=== PATIENT | female | born 1965 | race Caucasian/White ===

== ENCOUNTER 2017-05-15 17:58 | Emergency (ER) | payer OTHER ==
[2017-05-15] MEDS ORDERED: Sodium Chloride 0.9% 1,000 ML IV ONE (18:25)
[2017-05-15] MEDS ORDERED: HYDROmorphone 1 mg/mL 1mL Syr IVP STA (18:25)
[2017-05-15] MEDS ORDERED: HYDROmorphone 1 mg/mL 1mL Syr ONE (18:29)
--- NOTE | 2017-05-15 18:32 | ED Physician Chart ---
Chief Complaint/HPI - Patient Information Date Seen:: 05/15/17 Time Seen:: 18:15 Chief Complaint:: abdominal pain involving History of Present Illness:: Patient developed epigastric pain 3 days ago. She has been nauseated and has vomited 3 times in the morning and has slight diarrhea. She mentioned she's had a lot of retching. Allergies:: Allergies Allergy/AdvReac Type Severity Reaction Status Date / Time No Known Allergies Allergy Verified 04/04/16 22:04 Vitals:: Vital Signs - 8 hr 05/15/17 18:06 Temp 97.7 F HR 92 RR 16 BP 144/90 O2 Sat % 100 Historian:: Patient Review:: Nurse's Note Reviewed Review of Systems - Review of Systems General/Constitutional: No fever, No chills Skin: No skin lesions Head: No headache Eyes: Acuity change ENT: No earache Neck: No neck pain Cardio Vascular: No chest pain, No palpitations Pulmonary: No SOB, No cough GI: Nausea, Vomiting, Diarrhea, Pain G/U: No dysuria, No hematuria Musculoskeletal: No bone or joint pain, No back pain Endocrine: No polyuria, No polydipsia Psychiatric: No prior psych history Hematopoietic: No bruising Allergic/Immuno: No urticaria Neurological: No syncope, No focal symptoms Past Medical History - Past Medical History Past Medical History: Asthma/COPD Family History: HTN, Cancer Social History: Smoker, Alcohol, Other (smokes 1 cigarette a day; drinks a slight amount of alcohol on the weekends) Surgical History: None Psychiatricy History: None Medication: None Family Medical History - Family Member Mother History Unknown: Yes Hx Family Cancer: Yes Hx Family Hypertension: Yes Labs/Radiology/EKG Results - Lab Results Results: Laboratory Results - last 24 hr 05/15/17 05/15/17 05/15/17 18:30 18:30 18:30 WBC 12.9 H D RBC 4.62 Hgb 13.9 Hct 42.0 MCV 90.8 MCH 30.1 MCHC Differential 33.2 RDW 12.0 Plt Count 309 MPV 7.7 Neutrophils % 67.6 Lymphocytes % 23.0 Monocytes % 6.1 Eosinophils % 1.3 Basophils % 2.0 Sodium 134 L Potassium 3.8 Chloride 104 Carbon Dioxide 26.0 Anion Gap 7.8 BUN 14 Creatinine 0.7 Est GFR ( Amer) > 60.0 Est GFR (Non-Af Amer) > 60.0 BUN/Creatinine Ratio 20.0 Glucose 95 Whole Bld Lactic Acid 0.64 Calcium 9.1 Magnesium 1.9 Lipase 9 L Assessment - Assessment General Assessment: At 192 patient was pain-free. She had no abdominal tenderness to palpation. At 2011 patient was still pain free. Patient encouraged to start with half Gatorade half water, eat bananas, return to regular diet as soon as possible, and when improved drink extra orange juice. ED Septic Shock - . Is Septic Shock (SBP<90, OR Lactate>4 mmol\L) present?: No - <6hrs of presentation: Vital Signs: Vital Signs - 8 hr 05/15/17 18:06 Temp 97.7 F HR 92 RR 16 BP 144/90 O2 Sat % 100 Reassessment (Disposition) - Reassessment Reassessment Condition:: Improved - Diagnosis Diagnosis:: Viral gastroenteritis - Aftercare/Follow up Instructions Aftercare/Follow-Up Instructions:: Refer to Discharge Instructions - Patient Disposition Discharge/Transfer:: Home Condition at Disposition:: Stable, Improved
[2017-05-15 18:36] LABS: % EOSINOPHILS 1.3 % (0.0-5.0); % MONOCYTES 6.1 % (2.0-10.0); % NEUTROPHILS 67.6 % (40.0-80.0); HEMOGLOBIN 13.9 gm/dL (11.7-15.5); MEAN CELL VOLUME 90.8 fl (81-100); MEAN CORPUSCULAR HEMOGLOBIN 30.1 pg (27.0-31.0); MEAN CORPUSCULAR HGB CONC 33.2 pg (28.0-36.0); MEAN PLATELET VOLUME 7.7 fl; NEUTROPHILE ABSOLUTE 8.6 Th/cmm (1.8-8.0); PLATELET COUNT 309 Th/cmm (150-400); RED BLOOD COUNT 4.62 Mil/cmm (3.80-5.10)
[2017-05-15 18:43] LABS: WHITE BLOOD COUNT 12.9 Th/cmm (4.8-10.8)
[2017-05-15 18:51] LABS: ANION GAP 7.8 (7.0-16.0); BUN - UREA NITROGEN 14 mg/dL (7-25); CALCIUM SERUM 9.1 mg/dL (8.6-10.3); CHLORIDE 104 mEq/L (98-107); CREATININE - SERUM 0.7 mg/dL (0.6-1.2); GLUCOSE 95 mg/dL (70-105); LIPASE 9 U/L (11-82); MAGNESIUM 1.9 mg/dL (1.9-2.7); POTASSIUM SERUM 3.8 mEq/L (3.5-5.1); SODIUM SERUM 134 mEq/L (136-145)
--- NOTE | 2017-05-16 08:06 | Diagnostic Imaging Report ---
Ultrasound abdomen HISTORY: Upper abdominal pain COMPARISON: None Technique: Sonography of the abdomen was performed in multiple planes. FINDINGS: The liver demonstrates normal echogenicity with no evidence of focal lesions. The liver measures 15.6 cm. No evidence of gallstones or gallbladder wall thickening. The common bile duct measures 3 mm. Evaluation of the pancreas is limited due to bowel gas. The right kidney measures 10.0 x 5.0 cm. No evidence of focal lesions or hydronephrosis. The left kidney measures 10.3 x 5.4 cm. There is fullness of the left renal collecting system without evidence of alexus hydronephrosis. No evidence of focal lesions. The spleen measures 9.4 cm. IMPRESSION: Fullness of left renal collecting system without evidence of alexus hydronephrosis. No sonographic evidence of renal stones. If indicated CT would further clarify. No evidence of gallstones.
== END 2017-05-15 20:34 | disposition home or self-care (01) ==
LOC: ER 17:58
DX: A08.4 Viral intestinal infection, unspecified (principal); J45.909 Unspecified asthma, uncomplicated; J44.9 Chronic obstructive pulmonary disease, unspecified; F17.200 Nicotine dependence, unspecified, uncomplicated; F10.10 Alcohol abuse, uncomplicated
CPT/HCPCS: 36415-UA; 76700-TC; 80048-TC; 81025-TC; 83605; 83690-TC; 83735-TC; 85025-TC; 96374; J1170; J7030

== ENCOUNTER 2017-12-24 20:33 | Emergency (ER) | payer OTHER ==
--- NOTE | 2017-12-24 22:29 | ED Physician Chart ---
ED Chief Complaint/HPI - Patient Information Date Seen:: 12/24/17 Time Seen:: 22:15 Chief Complaint:: right costvertebral angle pain History of Present Illness:: Patient developed right costovertebral angle pain 2 days ago. No trauma. No skin rash. Patient states the pain is worse when she breathes in. She's had no recent upper respiratory tract infection or cough. Allergies:: Allergies Allergy/AdvReac Type Severity Reaction Status Date / Time No Known Allergies Allergy Verified 04/04/16 22:04 Vitals:: Vital Signs - 8 hr 12/24/17 21:05 Temp 97.7 F HR 104 RR 18 BP 130/75 O2 Sat % 98 Historian:: Patient Review:: Nurse's Note Reviewed ED Review of Systems - Review of Systems General/Constitutional: No fever, No chills Skin: No skin lesions Head: No headache Eyes: No loss of vision ENT: No earache, No nasal drainage, No sore throat Neck: No neck pain, No swelling Cardio Vascular: No chest pain, No palpitations Pulmonary: No SOB GI: No nausea, No vomiting, No diarrhea G/U: No dysuria Musculoskeletal: Bone or joint pain, Back pain Endocrine: No polyuria Psychiatric: No prior psych history, No depression Hematopoietic: No bruising Allergic/Immuno: No urticaria Neurological: No syncope, No focal symptoms ED Past Medical History - Past Medical History Past Medical History: No significant medical hx Family History: HTN Social History: Smoker, Other (smokes 2 cigarettes a day) Surgical History: None Psychiatricy History: None Medication: None Family Medical History - Family Member Mother History Unknown: Yes Hx Family Cancer: Yes Hx Family Hypertension: Yes ED Physical Exam - Physical Examination General/Constitutional: Well-developed, well-nourished, Alert, No distress Head: Atraumatic Eyes: Lids, conjuctiva normal Skin: Nl inspection, No rash Other Skin comments:: No paresthesias right costovertebral angle ENMT: External ears, nose nl, TM canals nl, Nasal exam nl, Lips, teeth, gums nl , Oropharynx nl, Tonsils nl Neck: No nuchal rigidity Respiratory: Nl effort/Exclusion, Clear to Auscultation, No Wheeze/Rhonchi/Rales Cardio Vascular: RRR, No murmur, gallop, rubs, NL S1 S2 GI: No tenderness/rebounding/guarding, No organomegaly, No hernia, Normal BS's, Nondistended, No mass/bruits : No CVA tenderness Extremities: Normal digits & nails Neuro/Psych: Normal gait ED Labs/Radiology/EKG Results - Lab Results Results: Laboratory Results - last 24 hr 12/24/17 22:20 Urine Color YELLOW Urine Clarity HAZY Urine pH 7.0 Ur Specific [place] 1.020 Urine Protein NEGATIVE Urine Glucose (UA) NEGATIVE Urine Ketones NEGATIVE Urine Blood NEGATIVE Urine Nitrate NEGATIVE Urine Bilirubin NEGATIVE Urine Urobilinogen 2.0 Ur Leukocyte Esterase MODERATE H ED Assessment - Assessment General Assessment: Patient has 10-20 white blood cells in the urine. Usiually with pyelonephritis there are more than that number of white blood cells in the urine. Patient does have pain over the area of the kidney however and no other explanation for the pain is readily evident. Patient needs to be treated for pyelonephritis. Patient to be given Levaquin 500 milligrams in the emergency department and prescribed a 1 week course of Levaquin 500 mg daily. Since the location of the patient's pain is suggestive of herpes zoster and the pain often starts before the rash appears I told the patient to watch out for any rash. ED Septic Shock - . Is Septic Shock (SBP<90, OR Lactate>4 mmol\L) present?: No - <6hrs of presentation: Vital Signs: Vital Signs - 8 hr 12/24/17 21:05 Temp 97.7 F HR 104 RR 18 BP 130/75 O2 Sat % 98 ED Reassessment (Disposition) - Reassessment Reassessment Condition:: Unchanged - Diagnosis Diagnosis:: Pyelonephritis - Aftercare/Follow up Instructions Aftercare/Follow-Up Instructions:: Refer to Discharge Instructions Medication Prescribed:: Levaquin 500 milligrams daily for 1 week - Patient Disposition Discharge/Transfer:: Home Condition at Disposition:: Stable, Improved
[2017-12-24 22:34] LABS: URINE MICROSCOPIC INDICATED? YES; URINE SOURCE MIDSTREAM
[2017-12-24 22:43] LABS: URINE BILIRUBIN NEGATIVE (NEGATIVE); URINE BLOOD NEGATIVE (NEGATIVE); URINE GLUCOSE (UA) NEGATIVE (NEGATIVE); URINE KETONE NEGATIVE (NEGATIVE); URINE LEUKOCYTE ESTERASE MODERATE (NEGATIVE); URINE NITRATE NEGATIVE (NEGATIVE); URINE PROTEIN NEGATIVE (NEGATIVE)
[2017-12-24 22:54] LABS: URINE CLARITY HAZY (CLEAR); URINE COLOR YELLOW
[2017-12-24 22:55] LABS: URINE BACTERIA MODERATE /hpf (NONE SEEN); URINE EPITHELIAL CELLS MODERATE /lpf (FEW); URINE RBC 0-2 /hpf (0-5)
--- NOTE | 2017-12-25 07:51 | Diagnostic Imaging Report ---
Portable chest x-ray History: Pain Allowing for portable technique the heart size is normal. No focal pulmonary parenchymal processes. No hilar or mediastinal abnormalities. Impression: No acute abnormalities.
== END 2017-12-24 23:15 | disposition home or self-care (01) ==
LOC: ER 20:33
DX: N12 Tubulo-interstitial nephritis, not specified as acute or chronic (principal); F17.210 Nicotine dependence, cigarettes, uncomplicated
CPT/HCPCS: 99285; 96372; 71045; 87086; 81001; J1885; 81025-TC

== ENCOUNTER 2019-03-20 02:18 | Emergency (ER) | payer OTHER ==
[2019-03-20] MEDS ORDERED: Morphine Sulfate 4 mg/mL 1mL Syr IV STA (02:55)
[2019-03-20] MEDS ORDERED: Morphine Sulfate 4 mg/mL 1mL Syr IM STA (02:55)
--- NOTE | 2019-03-20 02:58 | ED Physician Chart ---
ED Chief Complaint/HPI - Patient Information Date Seen:: 03/20/19 Time Seen:: 02:53 Chief Complaint:: lt scapular pain History of Present Illness:: 53 yr old female with lt parascapular pain after sleeping on it the wrong way no ant chest pain no nv or abd pain Allergies:: Allergies Allergy/AdvReac Type Severity Reaction Status Date / Time No Known Allergies Allergy Verified 04/04/16 22:04 Vitals:: Vital Signs - 8 hr 03/20/19 02:26 Temp 97.2 F HR 94 RR 19 BP 145/81 O2 Sat % 97 ED Review of Systems - Review of Systems General/Constitutional: No fever Skin: No skin lesions Head: No headache ENT: No earache Neck: No neck pain Cardio Vascular: Chest pain Pulmonary: No SOB GI: No nausea, No vomiting Musculoskeletal: Bone or joint pain, Back pain Endocrine: No polyuria ED Past Medical History - Past Medical History Past Medical History: No significant medical hx Family Medical History - Family Member Mother History Unknown: Yes Hx Family Cancer: Yes Hx Family Hypertension: Yes ED Physical Exam - Physical Examination General/Constitutional: Awake Head: Atraumatic Skin: Nl inspection ENMT: External ears, nose nl Neck: Nontender Respiratory: Nl effort/Exclusion Cardio Vascular: No murmur, gallop, rubs GI: No tenderness/rebounding/guarding : No CVA tenderness (pain lt scapular area) Extremities: No tenderness or effusion Neuro/Psych: Alert/oriented ED Septic Shock - . Is Septic Shock (SBP<90, OR Lactate>4 mmol\L) present?: No - <6hrs of presentation: Vital Signs: Vital Signs - 8 hr 03/20/19 02:26 Temp 97.2 F HR 94 RR 19 BP 145/81 O2 Sat % 97 ED Reassessment (Disposition) - Reassessment Reassessment:: lt scapular pains - Patient Disposition Discharge/Transfer:: Home Condition at Disposition:: Stable
[2019-03-20] MEDS ORDERED: Morphine Sulfate 4 mg/mL 1mL Syr ONE (03:01)
[2019-03-20] MEDS ORDERED: NITROGLYCERIN SPRAY 4.9 GM SL STA (03:03)
[2019-03-20] MEDS ORDERED: NITROGLYCERIN OINT 2% 1 INCH PACKET TP STA (03:11)
[2019-03-20 03:43] LABS: % BASOPHILS 0.5 % (0.0-2.0); % EOSINOPHILS 3.1 % (0.0-5.0); % LYMPHOCYTES 32.7 % (20.0-50.0); % MONOCYTES 7.6 % (2.0-10.0); % NEUTROPHILS 56.1 % (40.0-80.0); BASOPHILE ABSOLUTE 0.1 Th/cumm (0-0.2); EOSINOPHILE ABSOLUTE 0.4 Th/cmm (0.1-0.4); HEMATOCRIT 42.1 % (41.0-60); HEMOGLOBIN 13.8 gm/dL (12-16); MEAN CORPUSCULAR HEMOGLOBIN 28.9 pg (27.0-31.0); MEAN CORPUSCULAR HGB CONC 32.8 pg (28.0-36.0); MONOCYTE ABSOLUTE 0.9 Th/cmm (0.3-1.0); NEUTROPHILE ABSOLUTE 6.8 Th/cmm (1.8-8.0); PLATELET COUNT 341 Th/cmm (150-400); RED BLOOD COUNT 4.78 Mil/cmm (3.80-5.10); RED CELL DISTRIBUTION WIDTH 12.4 % (11.5-20.0); WHITE BLOOD COUNT 12.2 Th/cmm (4.8-10.8)
[2019-03-20 03:57] LABS: ALB/GLOB RATIO 1.6 (1.0-1.8); ALBUMIN 4.4 gm/dL (3.7-5.3); ALKALINE PHOSPHATASE 56 U/L (34-104); BILIRUBIN,TOTAL 0.3 mg/dL (0.3-1.0); BUN - UREA NITROGEN 11 mg/dL (7-25); CALCIUM SERUM 9.5 mg/dL (8.6-10.3); CHLORIDE 103 mEq/L (98-107); GLUCOSE 93 mg/dL (70-105); POTASSIUM SERUM 3.8 mEq/L (3.5-5.1); SGOT 12 U/L (13-39); SGPT/ALT 12 U/L (7-52); SODIUM SERUM 139 mEq/L (136-145); TOTAL PROTEIN,SERUM 7.2 gm/dL (6.0-8.3)
[2019-03-20 04:48] LABS: ANION GAP 13.5 (7.0-16.0); CARBON DIOXIDE 26.3 mEq/L (21.0-31.0); CREATININE - SERUM 0.7 mg/dL (0.6-1.2); GFR AFRICAN-AMERICAN > 60.0 ml/min (>90); GFR NON AFRICAN-AMERICAN > 60.0 ml/min
[2019-03-20 05:21] LABS: URINE SOURCE MIDSTREAM
[2019-03-20 05:23] LABS: URINE BILIRUBIN NEGATIVE (NEGATIVE); URINE BLOOD NEGATIVE (NEGATIVE); URINE GLUCOSE (UA) NEGATIVE (NEGATIVE); URINE KETONE NEGATIVE (NEGATIVE); URINE LEUKOCYTE ESTERASE NEGATIVE (NEGATIVE); URINE NITRATE NEGATIVE (NEGATIVE); URINE PH 5.5 (4.6 - 8.0); URINE PROTEIN NEGATIVE (NEGATIVE); URINE UROBILINOGEN 0.2 E.U./dL (0.2 - 1.0)
[2019-03-20 05:50] LABS: AMPHETAMINE URINE POSITIVE (NEGATIVE); BARBITURATES URINE NEGATIVE (NEGATIVE); COCAINE METABOLITE QUAL URINE NEGATIVE (NEGATIVE); METHAMPHETAMINES QUAL URINE NEGATIVE (NEGATIVE); OPIATES (MORPHINE) QUAL. URINE POSITIVE (NEGATIVE); PHENCYCLIDINE (PCP) URINE NEGATIVE (NEGATIVE); TRICYCLICS (TCA) QUAL. URINE NEGATIVE (NEGATIVE)
[2019-03-20 05:51] LABS: BENZODIAZEPINES QUAL URINE NEGATIVE (NEGATIVE); CANNABINOID THC POSITIVE (NEGATIVE); METHADONE URINE NEGATIVE (NEGATIVE)
[2019-03-20 05:52] LABS: URINE CLARITY CLEWAR (CLEAR); URINE COLOR YELLOW; URINE MICROSCOPIC INDICATED? NO
--- NOTE | 2019-03-20 09:36 | Diagnostic Imaging Report ---
Portable chest x-ray Time: 0 451 History: Pain Allowing for portable technique the heart size is normal. No focal pulmonary parenchymal processes. No hilar or mediastinal abnormalities. Impression: No acute abnormalities.
== END 2019-03-20 05:18 | disposition home or self-care (01) ==
LOC: ER 02:18
DX: M25.512 Pain in left shoulder (principal)
CPT/HCPCS: 99284; 96374; 96375; 93005; 71045; 84484; 36415; 80307; 85025; 81003; 82550; 81025; 80053; J1885